=== PATIENT | male | born 1985 | race African-American/Black ===

== ENCOUNTER 2020-05-05 17:13 | Inpatient (IN) | payer MEDICAID ==
[~2020-05-05] VITALS: Ht 185.4 cm; Wt 109.3 kg
[2020-05-05 17:30] VITALS: BP 127/70
[2020-05-05] MEDS ORDERED: WARF4TAB68 PO (18:19)
[2020-05-05] MEDS ORDERED: OLAN15TA3 PO (18:21)
[2020-05-05] MEDS ORDERED: SILV20CR14 TP (18:21)
[2020-05-05 19:00] VITALS: BP 117/73
--- NOTE | 2020-05-05 19:37 | RAD ---
EXAM: 1. CHEST ONE VIEW. 2. ABDOMEN ONE VIEW. HISTORY: Pulmonary embolism, inferior vena cava filter placement. COMPARISON: 04/04/2018. FINDINGS: Enlargement of the left hilum corresponds with bulky calcified lymph nodes on prior CT. A vertically oriented relatively linear opacity in the right base may be scarring or a focal infiltrate and was not clearly seen previously. There is no pneumothorax or pleural effusion. The heart is not enlarged. An inferior vena cava filter is relatively inferiorly positioned, in the region of the confluence of the iliac veins. There are no distended small bowel loops. There is gas distally. IMPRESSION: 1. A linear opacity in the right base may represent scarring or a focal infiltrate. Follow-up could be performed if there is persistent concern. 2. Chronic left hilar enlargement corresponds with calcified lymph nodes consistent with old granulomatous disease. 3. The inferior vena cava filter is inferiorly placed in the region of the confluence of the iliac veins. Electronically signed by: Traci Ovalles MD (05/05/2020 7:33 PM) [facility]
[2020-05-05 19:42] LABS: BASO % 1 % (0-3); EOS # 0.1 x10^3/uL (0.0-0.7); EOS % 2 % (0-3); HEMATOCRIT 36.1 % (39.0-53.0); HEMOGLOBIN 11.9 g/dL (13.0-17.5); LYMPH # 1.6 x10^3/uL (1.0-4.8); LYMPH % 32 % (24-48); MEAN CORPUSCULAR HEMOGLOBIN 28 pg (25-35); MEAN CORPUSCULAR HGB CONC 33 g/dL (31-37); MEAN CORPUSCULAR VOLUME 85 fL (79-100); MONO # 0.4 x10^3/uL (0.0-1.1); MONO % 8 % (0-9); NEUT % 58 % (31-73); PLATELET COUNT 272 x10^3/uL (140-400); RED BLOOD COUNT 4.24 x10^6/uL (4.30-5.70); RED CELL DISTRIBUTION WIDTH 15.2 % (11.5-14.5); WHITE BLOOD COUNT 5.1 x10^3/uL (4.0-11.0)
[2020-05-05 20:09] LABS: PROTHROMBIN TIME PATIENT 23.9 SEC (11.7-14.0)
[2020-05-05 20:17] LABS: ALBUMIN 3.9 g/dL (3.4-5.0); CALCIUM 8.7 mg/dL (8.5-10.1); CREATININE 1.2 mg/dL (0.7-1.3); GFR 84.4; POTASSIUM 3.6 mmol/L (3.5-5.1); TOTAL BILIRUBIN 0.5 mg/dL (0.2-1.0); TOTAL PROTEIN 7.7 g/dL (6.4-8.2)
[2020-05-05] MEDS: WARFARIN 4 MG TABLET. PO SCH (21:15)
[2020-05-05] MEDS: OLANZapine 5 MG TABLET PO SCH (21:15)
[2020-05-05] MEDS: silver sulfADIAZINE 1% CREAM 25GM TUBE. TP SCH (21:15)
--- NOTE | 2020-05-05 21:51 | EKG ---
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
[2020-05-05] MEDS ORDERED: ceFAZolin SODIUM IV Push 1 GM VIAL. IVP SCH (22:00)
--- NOTE | 2020-05-05 22:04 | PDOC ---
Provider Note Provider Note Pt seen.H&P dictated.#[id number]. Justicifation of Admission Dx: Justifications for Admission: Justification of Admission Dx: Yes Cellulitis: Cellulitis Comments: ch recurrent DVT lower extremities KITA BURGER MD May 05, 2020 22:04
--- NOTE | 2020-05-05 22:19 | RAD ---
Bilateral lower extremity venous duplex Doppler ultrasound HISTORY: History of bilateral leg DVT, history of IVC filter, and chest, abdomen, pelvis and leg varicosities. FINDINGS: No priors available for comparison. There is thin linear intraluminal web at the right common femoral vein typical of fibrin strand from chronic DVT. No echogenic nonocclusive or occlusive or acute DVT of the right common femoral vein, profunda femoral vein, superficial femoral vein or popliteal vein with patent blood flow and compressibility. Patent color Doppler blood flow the posterior tibial and peroneal veins in the calf. Right calf edema. There is linear intraluminal web at the left common femoral vein extending down the superficial femoral vein to the popliteal vein typical of fibrin strand from chronic DVT. No echogenic nonocclusive or occlusive or acute DVT of the left common femoral vein, profunda femoral vein, superficial femoral vein or popliteal vein with patent blood flow and compressibility. Patent color blood flow of the posterior tibial veins. The peroneal veins could not be visualized. IMPRESSION: Chronic DVT of both legs with intraluminal nonocclusive fibrin strands involving the femoral and popliteal veins as described above. No acute or occlusive DVT evident. Electronically signed by: Enmanuel Tomlin MD (05/05/2020 10:16 PM) [facility]
--- NOTE | 2020-05-05 22:47 | HP ---
ADMIT DATE: 05/05/2020 MEDICAL HISTORY AND PHYSICAL REASON FOR ADMISSION TO THE HOSPITAL: Recurrent DVT; right leg pain; ulcerations in the right leg, 4 at least, different sizes, with skin breakdown; and possible leg cellulitis and recurrence of DVT, the patient is on Coumadin. HISTORY OF PRESENT ILLNESS: The patient is a 34-year-old male. The patient has a history of DVT, pulmonary embolism diagnosed in 2016. He has IVC filter. He has been on Coumadin on and off for DVTs, and the patient was off for 4 months, he started back taking Coumadin again in the last 2 months. The patient has developed sores on the right leg and the right leg has been more swollen with calf stiffness and pain. The patient was admitted to the hospital for possible recurrence of DVT, leg ulcerations, on IV antibiotics. The patient has developed some collaterals in the chest wall, varicose veins in the chest wall, was worried about that. The patient also has history of psychiatric problem, schizophrenia, on Zyprexa, [facility]. PAST MEDICAL HISTORY: As mentioned, he has a history of DVT, pulmonary embolism, IVC filter. ALLERGIES: No known allergies. MEDICATIONS AT HOME: The patient is on Coumadin 8 mg daily, he is on Zyprexa 15 mg daily, Silvadene to the ulcers. PERSONAL HISTORY: No smoking, quit 10 years ago. Denies alcohol or street drugs. FAMILY HISTORY: No blood clots. REVIEW OF SYMPTOMS: CARDIAC: No chest pain. GASTROINTESTINAL: No nausea or vomiting. EXTREMITIES: Complains of pain and swelling in the right leg and ulcers in the leg. PHYSICAL EXAMINATION: VITAL SIGNS: At the time of admission show temperature 98, pulse 82, respirations 18, blood pressure 127/70 and 96 on room air. HEENT: Head is atraumatic. Pupils are equal. Oral cavity, no congestion. NECK: Supple. Thyroid not enlarged. JVD not elevated. CHEST: The patient has multiple prominent varicose veins in the chest, front and to the sides, for some collaterals. RECTAL AND GENITALIA: Deferred. EXTREMITIES: The patient has bilateral swelling in both extremities, more so on the right leg when compared to the left leg. There are 3 ulcerations, different sizes and depth. You can see some fibrin at the base of the ulcers anywhere from 2 cm to 4 cm, around stage 3 ulcerations. Pulses are hard to feel secondary to edema. FINAL IMPRESSION: 1. Ulcers with possible cellulitis, right lower leg. 2. Chronic recurrent deep venous thrombosis. 3. History of inferior vena cava filter. 4. The patient has prominent varicose veins, possible collaterals, in the chest and abdominal wall. 5. History of schizophrenia stable on medications. PLAN: At this time, admit to the hospital, IV antibiotics, Ancef after cultures. The patient may need compression wraps, venous Doppler to rule out DVT, check INR, and also we will have Vascular to see if we can do further investigation for the collaterals, and Wound Care consult. KITA BURGER MD DR: NALDO/luz JOB#: [id number] / [id number] TIAN
[2020-05-05 23:00] VITALS: BP 100/52
[2020-05-06 03:00] VITALS: BP 110/66
[2020-05-06 07:06] VITALS: BP 121/63
[2020-05-06] MEDS: silver sulfADIAZINE 1% CREAM 25GM TUBE. TP SCH ×2 (07:47→21:00)
--- NOTE | 2020-05-06 08:11 | NUR ---
SW following. Discussed with RN, pt from home, room air, regular diet. RN advised no SW needs at this time. SW will continue to follow.
--- NOTE | 2020-05-06 09:17 | PDOC ---
Provider Note Provider Note Vascular Patient seen and examined with Dr. Urban Consult dictated Right lower extremity extensive large anterior leg ulcers deep to subcutaneous tissue Palpable distal pulses IMP: Chronic DVT, right leg venous stasis ulcers Recommend: CT angiogram of his Vena cava and pelvic venous system Wound Care Consult and continued local wound care ID consult Abx per ID Surgical debridement, plan for tomorrow afternoon, patient is agreeable State surgical COVID test Ok to continue anticoagulation INR 2.[address] scan and discussed with Dr. Carvalho, recommend venogram with recanalization of IVC and iliac vein. Recommend patient transfer to for procedure. Will plan leg debridement tomorrow and make plans for venogram in the near future. Justicifation of Admission Dx: Justifications for Admission: Justification of Admission Dx: Yes Cellulitis: Cellulitis HARRIET ALBA CHARRER May 06, 2020 09:17
--- NOTE | 2020-05-06 09:29 | CONS ---
DATE OF CONSULTATION: 05/06/2020 CHIEF COMPLAINT: Right leg wounds. HISTORY OF PRESENT ILLNESS: The patient is a 34-year-old male with a history of bilateral lower extremity deep venous thrombosis and pulmonary embolus, which began back in 2016. He has been treated since that time with chronic anticoagulation using Coumadin and has an IVC filter in place. He has chronic symptoms of bilateral lower extremity swelling. He has developed ulcers on his right lower leg on the anterior portion of the leg over the past several months. He has been seen at [facility] with dressing care with no improvement of the wounds. It sounds like he was using a compression sock or Tubigrip through the wound care. He has been admitted to the hospital because of worsening of the wounds and cellulitis and is being treated with IV antibiotics. He reports no tissue breakdown or ulcers in the past in his left leg. REVIEW OF SYSTEMS: A 10-point review of systems was performed, which is otherwise negative besides what is mentioned in the history of present illness. PAST MEDICAL HISTORY: Includes: 1. Bilateral lower extremity deep venous thrombosis. 2. Pulmonary embolus. 3. IVC filter. 4. Schizophrenia. PAST SURGICAL HISTORY: IVC filter. ALLERGIES: No known drug allergies. MEDICATIONS: Please see his full MAR. He is on chronic Coumadin. FAMILY HISTORY: No significant history pertaining to this current problem. PHYSICAL EXAMINATION: GENERAL: The patient is awake and alert, sitting up comfortably in bed. VITAL SIGNS: He is afebrile. His vital signs are stable. NECK: Supple. ABDOMEN: Soft, nondistended, and nontender. EXTREMITIES: His bilateral upper extremities are warm without edema and palpable radial pulses. His bilateral lower extremities have moderate swelling of the calf and ankles and mild swelling of the feet, and in his feet he has palpable pedal pulses. His feet are pink and warm with no tissue breakdown in the feet or toes. His right lower extremity has large ulcers throughout the anterior surface of the lower leg deep to the subcutaneous tissue level, there is copious amounts of necrotic tissue throughout the wounds and surrounding erythema. There is mild drainage from the wounds. No fluctuance or underlying abscess cavities felt. These are very consistent with venous stasis ulcers. There is no tissue breakdown in his left lower extremity. NEUROLOGIC: He is awake and alert, oriented x 3, moving all 4 extremities with normal strength, no gross neurologic deficits. IMAGING STUDIES: A duplex scan of his bilateral lower extremities shows chronic deep venous thrombosis within the femoral and popliteal veins. LABORATORY STUDIES: INR is 2.2. IMPRESSION AND RECOMMENDATIONS: The patient is a 34-year-old male with a long history of bilateral lower extremity deep venous thrombosis and pulmonary embolus, which occurred in 2016. He has been treated with chronic anticoagulation and an IVC filter in place. He has symptoms of chronic bilateral lower extremity swelling. He has multiple large venous stasis ulcers in his right lower extremity along the anterior surface, which have necrotic tissue and surrounding cellulitis. I recommend continuing his full anticoagulation. I recommend a CT venogram of the abdomen and pelvis to evaluate his central veins for patency and IVC filter with his significant bilateral lower extremity swelling. He will need surgical debridement of his right lower leg wounds, which will be scheduled for tomorrow. We will consult our wound care physician for evaluation and he will need long-term wound care with aggressive compression therapy to heal these wounds. He will also be on IV antibiotics and Infectious Disease consulted. SERENA SLADE MD DR: ALEXIS/luz JOB#: [id number] / [id number]
[2020-05-06] MEDS ORDERED: IOHEXOL 300 MG/ML 100ML VIAL. IV ONE (10:00)
[2020-05-06] MEDS ORDERED: CONTRAST GIVEN. MC PRN (10:00)
[2020-05-06 10:47] VITALS: BP 104/62
--- NOTE | 2020-05-06 11:06 | NUR ---
Pharmacy Warfarin Dosing Note S:Pharmacy consulted to assist with anticoagulation therapy started with target INR: 2 -3 O:COSME STANLEY is a 34 year old M with Recurrent VTE LABS: Last INR: 2.2 Last HGB: 11.9 Last HCT: 36.1 Last PLT: 272 Last dose of 8MG given on 05/05/20 at 2115 Previous Regimen: 8 mg/day Vitamin K given: Drug Interaction Changes: Ongoing Drug Interactions: A:INR of 2.2 is within desired range. Target range for this patient is: 2 -3 P: Warfarin dose: 8 mg DAILY Bridge Therapy: None Next INR due TOMORROW Pharmacy anticoagulation service will continue to follow. HEATHER KEEN [facility], 05/06/20 [id number]
--- NOTE | 2020-05-06 11:49 | RAD ---
Examination: CT ABD PELV W/ IV CONTRST ONLY History: Reason: evaluate venous system, Chronic Must[place]ha lower ext DVT, leg ulcers, IVC filter / Spl. Instructions: IV OMNI 300 100 MLS VENOUS DELAY PER DR. TOLBERT / History: Comparison/Correlation: 04/01/2018 CT abdomen and pelvis without and with contrast Findings: Axial images of the abdomen and pelvis were obtained following IV contrast. Imaging was performed in the late nephrographic and early excretory phase as in order to more optimally opacify the venous structures of the abdomen and pelvis. Sagittal and coronal reformatted images were provided. Very small pleural effusions are present. Minimal bibasilar atelectasis at the costophrenic angles noted. Liver, spleen, pancreas, adrenal glands, and kidneys are unremarkable although evaluation is limited as the images were acquired for optimal assessment of venous structures rather than the abdominal organs. Numerous venous collaterals involve the visualized subcutaneous lower thorax to the proximal thigh levels. Many are of large diameter. There is an inferior vena cava filter present at the L4 level within the inferior vena cava. There is lack of opacification of the filter on the images provided. The right common iliac vein and right external iliac vein are diminutive in size especially compared to the previous CT exam. The left common iliac vein is also diminutive in size compared to previous exam. There is mild decrease in the left external iliac vein diameter compared to the prior exam. Collaterals are seen involving the retroperitoneum about the abdominal aorta and inferior vena cava as well as about the iliac vessels. Collaterals are also seen at other sites within the abdomen including subjacent to the upper abdominal wall midline extending to the umbilicus. Umbilical hernia containing omental fat is normal in size.. Moderate L4-5 disc space narrowing is present. Urinary bladder is moderately distended. Impression: The inferior vena cava filter does not opacify adequately with contrast compatible with large thrombus involvement. This finding is new since the prior CT exam. Numerous large venous collaterals are seen involving the subcutaneous fat throughout the anatomic levels imaged for this exam. Collaterals are notable as well within the abdomen and pelvis. The common and external iliac veins bilaterally are smaller in size compared to prior exam especially on the right. Correlate for underlying chronic or previous history of thrombus. Opacification of these vessels is adequate on images provided. Small pleural effusions with minimal adjacent atelectasis. On 05/06/2001 11:45 AM, results reported to the patient's nurse Melissa. RS Compliance Statement: One or more of the following individualized dose reduction techniques were utilized for this examination: 1. Automated exposure control 2. Adjustment of the mA and/or kV according to patient size 3. Use of iterative reconstruction technique Electronically signed by: Tony De Jesus MD (05/06/2020 11:46 AM) [id number]
--- NOTE | 2020-05-06 12:33 | CONS ---
DATE OF CONSULTATION: 05/06/2020 REFERRING PHYSICIAN: Gregory Loving MD REASON FOR CONSULTATION: Chronic right leg wounds with superimposed cellulitis. HISTORY OF PRESENT ILLNESS: A 34-year-old male with history of bilateral lower extremity DVT and PE in 2016, status post IVC filter, on anticoagulation, presented with right leg worsening ulcer and swelling over the past couple of months. The patient had been following with [facility] with dressing with no improvement. The patient has been admitted to the hospital because of worsening wound, swelling and pain. The patient had been on cefdinir without much help. Also had been on Bactrim in the past. He denies any fevers, chills, nausea, vomiting, diarrhea, abdominal pain. He also has varicose veins, affecting both lower extremity, swelling in both the lower extremities, has been chronic. The patient was started on Ancef. Vascular has been consulted. ID consult has been requested for antibiotic management. REVIEW OF SYSTEMS: Negative except for above in the HPI. PAST MEDICAL HISTORY: 1. Bilateral lower extremity DVT. 2. Pulmonary embolism. 3. Status post IVC filter. 4. Schizophrenia. 5. Varicose veins. PAST SURGICAL HISTORY: IVC filter. ALLERGIES: No known drug allergies. SOCIAL HISTORY: No smoking, no alcohol, no illicit drugs. FAMILY HISTORY: Mother is adopted. No known history of coagulopathy. CURRENT MEDICATION: Ancef, hydromorphone, morphine, fentanyl, Zofran, olanzapine, sulfadiazine, warfarin. PHYSICAL EXAMINATION: VITAL SIGNS: Temperature 97.7, pulse 63, respiratory rate 17, blood pressure 104/62, oxygen saturation 99% on room air. GENERAL: Alert, oriented x 3, male, lying comfortably in bed, in no acute distress, pleasant, cooperative. HEENT: Normocephalic, atraumatic, anicteric. NECK: Supple. No JVD. LUNGS: Clear bilaterally. No wheezing. HEART: S1, S2. No gallops or murmurs. ABDOMEN: Soft, nontender, nondistended. No rebound, no guarding. EXTREMITIES: Bilateral lower extremity swelling with numerous ulcers over the anterior medial aspect of the right lower extremity with necrotic tissue, surrounding redness, warmth. Mild drainage from wound. No underlying fluctuance. Callus is present over both the toes on the plantar aspect. No skin breakdown noted. NEUROLOGIC: Alert and oriented x 3, grossly nonfocal. PSYCHIATRIC: Cooperative. Appropriate mood and affect. DERMATOLOGIC: No generalized rash except for above. LABORATORY DATA: WBC 5.1, hemoglobin 11.9, hematocrit 36.1, platelets 272. Sodium 140, potassium 3.6, chloride 102, bicarbonate 28, BUN 14, creatinine 1.2, glucose 96, calcium 8.7, total bilirubin 0.5, AST 37, ALT 22, alkaline phosphatase 88, total protein 7.7, albumin 3.9. IMAGING: Lower extremity ultrasound shows chronic DVT of both legs with intraluminal nonocclusive fibrin strands involving the femoral and popliteal veins. No acute or occlusive DVT present. Chest x-ray shows linear opacity in the lung base, represent scarring of the focal infiltrate. Followup could be performed for chronic left hilar enlargement correspond with calcified lymph nodes consistent with old granulomatous disease, inferior vena cava filter is placed in the region of confluence of the iliac veins. KUB shows nondistended bowels, gas distally, IVC is relatively inferiorly positioned in the region of confluence of the iliac vein. Abdominal and pelvic CT pending. IMPRESSION: 1. Chronic right lower extremity ulcers with mild superimposed cellulitis, 2. Chronic recurrent deep venous thrombosis. 3. Multiple large venous stasis ulcers, right lower extremity along the anterior medial aspect with necrosis. 4. History of pulmonary embolism. Status post IVC 5. History of schizophrenia. RECOMMENDATIONS: 1. Continue empiric Ancef. 2. Vascular plans noted. 3. Followup CT abdomen and pelvis. 4. Continue local wound care. 5. Continue supportive care. 6. Follow up labs and cultures. Thank you for consulting Infectious Disease to participate in this patient's care. If you have any questions, do not hesitate to contact me. GUSTAVO BECKER MD DR: KAYCEE/luz JOB#: [id number] / [id number] TIAN
[2020-05-06] MEDS: MULTIVITAMIN with MINERAL TABLET. PO SCH (13:29)
[2020-05-06 14:23] VITALS: BP 117/72
--- NOTE | 2020-05-06 15:05 | PDOC ---
PROGRESS NOTES Subjective Subjective no new problems Objective Objective Vital Signs Date Time Temp Pulse Resp B/P (MAP) Pulse Ox O2 Delivery O2 Flow Rate FiO2 05/06/20 14:23 97.5 65 16 117/72 (87) 100 Room Air 97.5 Intake and Output 05/06/20 07:00 # Voids 3 Physical Exam Abdomen: Normal bowel sounds, Soft Heart: Regular rate, Normal S1, Normal S2 General: Alert HEENT: Atraumatic Lungs: Clear to auscultation MUSCULOSKELETAL: Osteoarthritic changes both hands Neck: Supple Neuro: Normal speech Psych/Mental Status: Mood NL Skin: Other (multiple leg ullcers left leg) Assessment Assessment FINAL IMPRESSION: 1. Ulcers with possible cellulitis, right lower leg. 2. Chronic recurrent deep venous thrombosis. 3. History of inferior vena cava filter. 4. The patient has prominent varicose veins, possible collaterals, in the chest and abdominal wall 5. History of schizophrenia stable on medications . PLAN: venous doppler both legs inr 2.3 good on coumadin. Appreciate vascular consult. CTA of abdomen pending. other labs ok. At this time, admit to the hospital, IV antibiotics, Ancef after cultures. The patient may need compression wraps, venous Doppler to rule out DVT, check INR, and also we will have Vascular to see if we can do further investigation for the collaterals, and Wound Care consult. Comment Review of Relevant I have reviewed the following items jessica (where applicable) has been applied. Labs Laboratory Tests Test 05/05/20 19:30 05/05/20 19:35 Sodium Level 140 mmol/L (136-145) Potassium Level 3.6 mmol/L (3.5-5.1) Chloride Level 102 mmol/L (98-107) Carbon Dioxide Level 28 mmol/L (21-32) Anion Gap 10 (6-14) Blood Urea Nitrogen 14 mg/dL (8-26) Creatinine 1.2 mg/dL (0.7-1.3) Estimated GFR (Cockcroft-Gault) 84.4 BUN/Creatinine Ratio 12 (6-20) Glucose Level 96 mg/dL (70-99) Calcium Level 8.7 mg/dL (8.5-10.1) Total Bilirubin 0.5 mg/dL (0.2-1.0) Aspartate Amino Transf (AST/SGOT) 37 U/L (15-37) Alanine Aminotransferase (ALT/SGPT) 22 U/L (16-63) Alkaline Phosphatase 88 U/L (46-116) Total Protein 7.7 g/dL (6.4-8.2) Albumin 3.9 g/dL (3.4-5.0) Albumin/Globulin Ratio 1.0 (1.0-1.7) White Blood Count 5.1 x10^3/uL (4.0-11.0) Red Blood Count 4.24 x10^6/uL (4.30-5.70) Hemoglobin 11.9 g/dL (13.0-17.5) Hematocrit 36.1 % (39.0-53.0) Mean Corpuscular Volume 85 fL (79-100) Mean Corpuscular Hemoglobin 28 pg (25-35) Mean Corpuscular Hemoglobin Concent 33 g/dL (31-37) Red Cell Distribution Width 15.2 % (11.5-14.5) Platelet Count 272 x10^3/uL (140-400) Neutrophils (%) (Auto) 58 % (31-73) Lymphocytes (%) (Auto) 32 % (24-48) Monocytes (%) (Auto) 8 % (0-9) Eosinophils (%) (Auto) 2 % (0-3) Basophils (%) (Auto) 1 % (0-3) Neutrophils # (Auto) 3.0 x10^3/uL (1.8-7.7) Lymphocytes # (Auto) 1.6 x10^3/uL (1.0-4.8) Monocytes # (Auto) 0.4 x10^3/uL (0.0-1.1) Eosinophils # (Auto) 0.1 x10^3/uL (0.0-0.7) Basophils # (Auto) 0.0 x10^3/uL (0.0-0.2) Prothrombin Time 23.9 SEC (11.7-14.0) Prothromb Time International Ratio 2.2 (0.8-1.1) Medications Current Medications Cefazolin Sodium (Ancef) 2 gm Q8HRS IVP ; Start 05/05/20 at 22:00; Status UNV Cefazolin Sodium/ Dextrose 50 ml @ 100 mls/hr Q8HRS IV Last administered on 05/06/20at 13:32; Start 05/05/20 at 20:00 Fentanyl Citrate (Fentanyl 2ml Vial) 25 mcg PRN Q5MIN PRN IV MILD PAIN 1-3; Start 05/07/20 at 07:00; Stop 05/08/20 at 06:59 Fentanyl Citrate (Fentanyl 2ml Vial) 50 mcg PRN Q5MIN PRN IV MODERATE TO SEVERE PAIN; Start 05/07/20 at 07:00; Stop 05/08/20 at 06:59 Hydromorphone HCl (Dilaudid) 0.5 mg PRN Q10MIN PRN IV SEV PAIN, Second choice; Start 05/07/20 at 07:00; Stop 05/08/20 at 06:59 Info (CONTRAST GIVEN -- Rx MONITORING) 1 each PRN DAILY PRN MC SEE COMMENTS; Start 05/06/20 at 10:00; Stop 05/08/20 at 09:59 Iohexol (Omnipaque 300 Mg/ml) 100 ml 1X ONCE IV Last administered on 05/06/20at 10:05; Start 05/06/20 at 10:00; Stop 05/06/20 at 10:01; Status DC Lactobacillus Rhamnosus (Culturelle) 1 cap BID PO ; Start 05/06/20 at 21:00 Lidocaine HCl (Xylocaine-Mpf 1% 2ml Vial) 2 ml PRN 1X PRN ID PRIOR TO IV START; Start 05/07/20 at 07:00; Stop 05/08/20 at 06:59 Morphine Sulfate (Morphine Sulfate) 1 mg PRN Q10MIN PRN IV SEVERE PAIN 7-10; Start 05/07/20 at 07:00; Stop 05/08/20 at 06:59 Multivitamins (Thera M Plus) 1 tab DAILY PO Last administered on 05/06/20at 13:29; Start 05/06/20 at 13:30 Olanzapine (ZyPREXA) 15 mg QHS PO Last administered on 05/05/20at 21:15; Start 05/05/20 at 21:00 Ondansetron HCl (Zofran) 4 mg PRN Q6HRS PRN IV NAUSEA/VOMITING; Start 05/07/20 at 07:00; Stop 05/08/20 at 06:59 Prochlorperazine Edisylate (Compazine) 5 mg PACU PRN PRN IV NAUSEA, MRX1; Start 05/07/20 at 07:00; Stop 05/08/20 at 06:59 Ringer's Solution 1,000 ml @ 30 mls/hr Q24H IV ; Start 05/07/20 at 07:00; Stop 05/07/20 at 18:59 Silver Sulfadiazine (Silvadene) 1 sean BID TP Last administered on 05/06/20at 07:47; Start 05/05/20 at 21:00 Warfarin Sodium (Coumadin Per Pharmacy) 1 each PRN DAILY PRN MC SEE COMMENTS Last administered on 05/06/20at 11:04; Start 05/05/20 at 18:30 Warfarin Sodium (Coumadin) 8 mg DAILY16 PO Last administered on 05/05/20at 21:15; Start 05/05/20 at 21:00 Vitals/I & O Vital Sign - Last 24 Hours 05/05/20 05/05/20 05/05/20 05/05/20 17:30 19:00 19:30 23:00 Temp 98.2 97.9 97.4 98.2 97.9 97.4 Pulse 82 80 75 Resp 18 18 18 B/P (MAP) 127/70 (89) 117/73 (88) 100/52 (68) Pulse Ox 96 94 95 O2 Delivery Room Air Room Air Room Air Room Air 05/06/20 05/06/20 05/06/20 05/06/20 03:00 07:06 07:58 10:47 Temp 98.2 98.0 97.7 98.2 98.0 97.7 Pulse 75 58 63 Resp 18 16 17 B/P (MAP) 110/66 (81) 121/63 (82) 104/62 (76) Pulse Ox 96 94 99 O2 Delivery Room Air Room Air Room Air Room Air 05/06/20 14:23 Temp 97.5 97.5 Pulse 65 Resp 16 B/P (MAP) 117/72 (87) Pulse Ox 100 O2 Delivery Room Air Justicifation of Admission Dx: Justifications for Admission: Justification of Admission Dx: Yes Cellulitis: Cellulitis KITA BURGER MD May 06, 2020 15:05
--- NOTE | 2020-05-06 15:09 | NUR ---
Wound/Ostomy Care Wound Type/Assessment: consult for RLE VLU, hx of DVT, slough noted on wound bed, dark discolored leg . Per Dr. Urban's note, pt to go to surgery for debridement tomorrow. Treatment Recommendations/Plan: RLE wound cleansed with saline wash and measured.Therahoney,contact layer, abd and kerlix applied. Wound care will follow up on 05/08 after surgery. Education provided: patient on leg elevation Offloading surface/device: n/a Recommended Referrals/Tests: vascular following up Discharge Recommendations for dressings: will re-eval after surgical intervention and consult with [facility] surgery.
[2020-05-06] MEDS: WARFARIN 4 MG TABLET. PO SCH (15:39)
[2020-05-06 19:00] VITALS: BP 104/58
[2020-05-06] MEDS: OLANZapine 5 MG TABLET PO SCH (21:12)
[2020-05-06] MEDS: LACTOBACILLUS RHAMNOSUS GG 1 CAPSULE. PO SCH (21:12)
[2020-05-06 23:00] VITALS: BP 106/64
[2020-05-07 05:13] LABS: PROTHROMBIN TIME PATIENT 26.7 SEC (11.7-14.0)
[2020-05-07] MEDS ORDERED: HYDROmorphone 2 MG/ML VIAL IV PRN (07:00)
[2020-05-07] MEDS ORDERED: PROCHLORPERAZINE 10 MG/2 ML VIAL. IV PRN (07:00)
[2020-05-07] MEDS ORDERED: IV RINGERS,LACTATED 1000ML 1,000 ML IV SCH (07:00)
[2020-05-07] MEDS ORDERED: LIDOCAINE 1% PF 2 ML VIAL. ID PRN (07:00)
[2020-05-07] MEDS ORDERED: ONDANSETRON PF 4 MG/2 ML VIAL. IV PRN (07:00)
[2020-05-07] MEDS ORDERED: fentaNYL PF VIAL 100 MCG/2 ML VIAL IV PRN (07:00)
[2020-05-07] MEDS: silver sulfADIAZINE 1% CREAM 25GM TUBE. TP SCH ×2 (07:03→20:47)
[2020-05-07] MEDS: LACTOBACILLUS RHAMNOSUS GG 1 CAPSULE. PO SCH ×2 (07:03→20:46)
[2020-05-07] MEDS: MULTIVITAMIN with MINERAL TABLET. PO SCH (07:03)
[2020-05-07 07:05] VITALS: BP 110/64
--- NOTE | 2020-05-07 08:14 | PDOC ---
Infectious Disease Note Subjective: Subjective Patient without complaints Awaiting surgery later today Vital Signs: Vital Signs Vital Signs Date Time Temp Pulse Resp B/P (MAP) Pulse Ox O2 Delivery O2 Flow Rate FiO2 05/07/20 07:05 97.8 64 16 110/64 (79) 98 Room Air 97.8 Physical Exam: PHYSICAL EXAM GENERAL: Alert, oriented x 3, male, lying comfortably in bed, in no acute distress, pleasant, cooperative. HEENT: Normocephalic, atraumatic, anicteric. NECK: Supple. No JVD. LUNGS: Clear bilaterally. No wheezing. HEART: S1, S2. No gallops or murmurs. ABDOMEN: Soft, nontender, nondistended. No rebound, no guarding. EXTREMITIES: Bilateral lower extremity swelling with numerous ulcers over the anterior medial aspect of the right lower extremity with necrotic tissue, surrounding redness, warmth. Mild drainage from wound. No underlying fluctuance. Callus is present over both the toes on the plantar aspect. No skin breakdown noted. NEUROLOGIC: Alert and oriented x 3, grossly nonfocal. PSYCHIATRIC: Cooperative. Appropriate mood and affect. DERMATOLOGIC: No generalized rash except for above. Medications: Inpatient Meds: Current Medications Medications (Trade) Dose Ordered Sig/Heron Start Time Stop Time Status Last Admin Dose Admin Cefazolin Sodium (Ancef) 2 gm Q8HRS 05/05/20 22:00 UNV Cefazolin Sodium 1 gm/Sodium Chloride 500 ml @ 500 mls/hr 1X ONCE 05/07/20 06:00 05/07/20 06:59 DC Cefazolin Sodium/ Dextrose 50 ml @ 100 mls/hr Q8HRS 05/05/20 20:00 05/07/20 05:40 100 MLS/HR Fentanyl Citrate (Fentanyl 2ml Vial) 50 mcg PRN Q5MIN PRN 05/07/20 07:00 05/08/20 06:59 Hydromorphone HCl (Dilaudid) 0.5 mg PRN Q10MIN PRN 05/07/20 07:00 05/08/20 06:59 Info (CONTRAST GIVEN -- Rx MONITORING) 1 each PRN DAILY PRN 05/06/20 10:00 05/08/20 09:59 Iohexol (Omnipaque 300 Mg/ml) 100 ml 1X ONCE 05/06/20 10:00 05/06/20 10:01 DC 05/06/20 10:05 100 ML Lactobacillus Rhamnosus (Culturelle) 1 cap BID 05/06/20 21:00 05/06/20 21:12 1 CAP Lidocaine HCl (Xylocaine-Mpf 1% 2ml Vial) 2 ml PRN 1X PRN 05/07/20 07:00 05/08/20 06:59 Morphine Sulfate (Morphine Sulfate) 1 mg PRN Q10MIN PRN 05/07/20 07:00 05/08/20 06:59 Multivitamins (Thera M Plus) 1 tab DAILY 05/06/20 13:30 05/06/20 13:29 1 TAB Olanzapine (ZyPREXA) 15 mg QHS 05/05/20 21:00 05/06/20 21:12 15 MG Ondansetron HCl (Zofran) 4 mg PRN Q6HRS PRN 05/07/20 07:00 05/08/20 06:59 Prochlorperazine Edisylate (Compazine) 5 mg PACU PRN PRN 05/07/20 07:00 05/08/20 06:59 Ringer's Solution 1,000 ml @ 30 mls/hr Q24H 05/07/20 07:00 05/07/20 18:59 Silver Sulfadiazine (Silvadene) 1 sean BID 05/05/20 21:00 05/06/20 07:47 1 SEAN Warfarin Sodium (Coumadin Per Pharmacy) 1 each PRN DAILY PRN 05/05/20 18:30 05/06/20 11:04 1 EACH Warfarin Sodium (Coumadin) 8 mg DAILY16 05/05/20 21:00 05/06/20 15:39 8 MG Labs: Lab Laboratory Tests Test 05/06/20 09:40 05/07/20 04:03 Coronavirus (COVID-19)(PCR) Negative (NEGATIVE) Prothrombin Time 26.7 SEC (11.7-14.0) Prothromb Time International Ratio 2.5 (0.8-1.1) Micro CT abdomen impression: The inferior vena cava filter does not opacify adequately with contrast compatible with large thrombus involvement. This finding is new since the prior CT exam. Numerous large venous collaterals are seen involving the subcutaneous fat throughout the anatomic levels imaged for this exam. Collaterals are notable as well within the abdomen and pelvis. The common and external iliac veins bilaterally are smaller in size compared to prior exam especially on the right. Correlate for underlying chronic or previous history of thrombus. Opacification of these vessels is adequate on images provided. Small pleural effusions with minimal adjacent atelectasis. Objective: Assessment: 1. Chronic right lower extremity ulcers with mild superimposed cellulitis and necrotic wounds 2. Chronic recurrent deep venous thrombosis. 3. Multiple large venous stasis ulcers, right lower extremity along the anterior medial aspect 4. History of pulmonary embolism. Status post IVC 5. History of schizophrenia. Plan: Plan of Care 1. Continue empiric Ancef. 2. Awaiting surgery later today 3. Follow-up intraoperative cultures 4. Continue local wound care. 5. Continue supportive care. 6. Follow up labs GUSTAVO BECKER MD May 07, 2020 08:14
--- NOTE | 2020-05-07 08:56 | NUR ---
SW following. Discussed with RN, pt having an I&D today, IV ancef. RN questioned SW about a possible [facility] transfer, SW not aware of this, RN thinks possibly pt will be discharged after procedure to follow up with [facility] rather than a hospital transfer. SW will continue to follow.
--- NOTE | 2020-05-07 09:26 | PDOC ---
PROGRESS NOTES Subjective Subjective GOING FOR WOUND DEBRIDEMENT Objective Objective Vital Signs Date Time Temp Pulse Resp B/P (MAP) Pulse Ox O2 Delivery O2 Flow Rate FiO2 05/07/20 07:05 97.8 64 16 110/64 (79) 98 Room Air 97.8 Intake and Output 05/07/20 07:00 Intake Total 900 ml Balance 900 ml Intake Oral 900 ml # Voids 5 Physical Exam Abdomen: Normal bowel sounds, Soft Heart: Regular rate, Normal S1, Normal S2 General: Alert HEENT: Atraumatic Lungs: Clear to auscultation MUSCULOSKELETAL: Osteoarthritic changes both hands Neck: Supple Neuro: Normal speech Psych/Mental Status: Mood NL Skin: Other (multiple leg ullcers left leg) Assessment Assessment FINAL IMPRESSION: 1. Multiple Ulcers with possible cellulitis, right lower leg. 2. Chronic recurrent deep venous thrombosis. 3. History of inferior vena cava filter. 4. The patient has prominent varicose veins, possible collaterals, in the chest and abdominal wall 5. History of schizophrenia stable on medications . PLAN:CT venogram ,clots around IVC filter venous doppler both legs inr 2.5 good on coumadin. Appreciate vascular consult. covid -19 neg other labs ok. hematology consult for hypercoaguble state At this time, admit to the hospital, IV antibiotics, Ancef after cultures. The patient may need compression wraps, venous Doppler to rule out DVT, check INR, and also we will have Vascular to see if we can do further investigation for the collaterals, and Wound Care consult. Comment Review of Relevant I have reviewed the following items jessica (where applicable) has been applied. Labs Laboratory Tests Test 05/06/20 09:40 05/07/20 04:03 Coronavirus (COVID-19)(PCR) Negative (NEGATIVE) Prothrombin Time 26.7 SEC (11.7-14.0) Prothromb Time International Ratio 2.5 (0.8-1.1) Medications Current Medications Cefazolin Sodium 1 gm/Sodium Chloride 500 ml @ 500 mls/hr 1X ONCE IRR ; Start 05/07/20 at 06:00; Stop 05/07/20 at 06:59; Status DC Fentanyl Citrate (Fentanyl 2ml Vial) 25 mcg PRN Q5MIN PRN IV MILD PAIN 1-3; Start 05/07/20 at 07:00; Stop 05/08/20 at 06:59 Fentanyl Citrate (Fentanyl 2ml Vial) 50 mcg PRN Q5MIN PRN IV MODERATE TO SEVERE PAIN; Start 05/07/20 at 07:00; Stop 05/08/20 at 06:59 Hydromorphone HCl (Dilaudid) 0.5 mg PRN Q10MIN PRN IV SEV PAIN, Second choice; Start 05/07/20 at 07:00; Stop 05/08/20 at 06:59 Info (CONTRAST GIVEN -- Rx MONITORING) 1 each PRN DAILY PRN MC SEE COMMENTS; Start 05/06/20 at 10:00; Stop 05/08/20 at 09:59 Iohexol (Omnipaque 300 Mg/ml) 100 ml 1X ONCE IV Last administered on 05/06/20at 10:05; Start 05/06/20 at 10:00; Stop 05/06/20 at 10:01; Status DC Lactobacillus Rhamnosus (Culturelle) 1 cap BID PO Last administered on 05/06/20at 21:12; Start 05/06/20 at 21:00 Lidocaine HCl (Xylocaine-Mpf 1% 2ml Vial) 2 ml PRN 1X PRN ID PRIOR TO IV START; Start 05/07/20 at 07:00; Stop 05/08/20 at 06:59 Morphine Sulfate (Morphine Sulfate) 1 mg PRN Q10MIN PRN IV SEVERE PAIN 7-10; Start 05/07/20 at 07:00; Stop 05/08/20 at 06:59 Multivitamins (Thera M Plus) 1 tab DAILY PO Last administered on 05/06/20at 13:29; Start 05/06/20 at 13:30 Ondansetron HCl (Zofran) 4 mg PRN Q6HRS PRN IV NAUSEA/VOMITING; Start 05/07/20 at 07:00; Stop 05/08/20 at 06:59 Prochlorperazine Edisylate (Compazine) 5 mg PACU PRN PRN IV NAUSEA, MRX1; Start 05/07/20 at 07:00; Stop 05/08/20 at 06:59 Ringer's Solution 1,000 ml @ 30 mls/hr Q24H IV ; Start 05/07/20 at 07:00; Stop 05/07/20 at 18:59 Vitals/I & O Vital Sign - Last 24 Hours 05/06/20 05/06/20 05/06/20 05/06/20 10:47 14:23 19:00 20:00 Temp 97.7 97.5 97.3 97.7 97.5 97.3 Pulse 63 65 57 Resp 17 16 18 B/P (MAP) 104/62 (76) 117/72 (87) 104/58 (73) Pulse Ox 99 100 100 O2 Delivery Room Air Room Air Room Air Room Air 05/06/20 05/07/20 05/07/20 23:00 03:00 07:05 Temp 97.7 97.8 97.7 97.8 Pulse 76 64 Resp 18 18 16 B/P (MAP) 106/64 (78) 110/64 (79) Pulse Ox 99 98 O2 Delivery Room Air Room Air Intake and Output 05/06/20 05/06/20 05/07/20 15:00 23:00 07:00 Intake Total 400 ml 500 ml Balance 400 ml 500 ml Justicifation of Admission Dx: Justifications for Admission: Justification of Admission Dx: Yes Cellulitis: Cellulitis KITA BURGER MD May 07, 2020 09:25
[2020-05-07 10:50] VITALS: BP 117/73
--- NOTE | 2020-05-07 11:01 | NUR ---
Pharmacy Warfarin Dosing Note S:Pharmacy consulted to assist with anticoagulation therapy started with target INR: 2 -3 O:COSME STANLEY is a 34 year old M with Recurrent VTE LABS: Last INR: 2.5 Last HGB: 11.9 Last HCT: 36.1 Last PLT: 272 Last dose of 8MG given on 05/06/20 at 1539 Previous Regimen: 8 mg/day A:INR of 2.5 is within desired range. Target range for this patient is: 2 -3 P: Warfarin dose: 8 mg Today at 1600 Bridge Therapy: None Next INR due 05/08/20 Pharmacy anticoagulation service will continue to follow. CARSON SILVA RPH, 05/07/20 [id number]
[2020-05-07] MEDS ORDERED: SURGICEL FIBRILLAR 1X2 EACH. ONE (12:41)
[2020-05-07] MEDS ORDERED: LIDOCAINE 1% Multi-Dose 20 ML VIAL. ONE (12:41)
--- NOTE | 2020-05-07 12:48 | PDOC ---
Provider Note Provider Note Vascular Surgery CT shows occlusion of the IVC and filter which is likely chronic associated with his history of DVTs. He has chronic symptoms of abdominal wall and groin large varicose veins, bilateral lower extremity swelling and right leg venous stasis ulcers. Plan right leg debridement today. I discussed case with IR here at [facility] and they recommend venogram at which I agree with for this very specialized problem. I have arrange a venogram with possible thrombolysis and stenting of the IVC next week at with Dr. Rao. We will need to hold coumadin and start lovenox. This procedure is not urgent. He may be discharged this week and will come into next week for the procedure. Will need follow up with wound care for his ulcers. Justicifation of Admission Dx: Justifications for Admission: Justification of Admission Dx: Yes Cellulitis: Cellulitis SERENA SLADE MD May 07, 2020 12:48
[2020-05-07] MEDS ORDERED: fentaNYL PF VIAL 100 MCG/2 ML VIAL ONE (12:49)
[2020-05-07] MEDS ORDERED: LIDOCAINE 1% PF 5 ML VIAL. ONE (12:49)
[2020-05-07] MEDS ORDERED: PROPOFOL 10 MG/ML (20ML) VIAL. IV ONE (12:49)
[2020-05-07] MEDS ORDERED: MIDAZOLAM HCL/PF 2 MG/2 ML VIAL. ONE (12:50)
--- NOTE | 2020-05-07 13:33 | PDOC ---
BRIEF OPERATIVE NOTE Pre-Op Diagnosis Right lower extremity venous stasis ulcers with necrosis of skin and subcutaneous tissue, cellulitis surrounding tissue Post-Op Diagnosis same Procedure Performed Right lower leg Excisional debridement and subcutaneous tissue Surgeon Dr. [facility] Harriet Alba NP Anesthesia Type: General Blood Loss minimal Specimens Obtained cultures lower extremity wound Findings healthy viable tissue post debridement Complications none Operative Note see dictated note see dictated note for wound measurements Patient will need venogram with thrombectomy of IVC and possible stent placement at the [facility], will plan to admit patient there next week for procedure. The patient will need to have his Coumadin held and on Susanne enox, he can continue that up until the time of procedure per Dr. Urban. HARRIET ALBA HAT LINING BLOCKER May 07, 2020 13:33
--- NOTE | 2020-05-07 13:43 | OP ---
DATE OF SURGERY: 05/07/2020 SURGEON: Graciela Urban MD FOOD AND NUTRITION TEACHER: Lidia Recio, nurse practitioner. PREOPERATIVE DIAGNOSIS: Right lower extremity venous stasis ulcers with necrotic tissue throughout the wounds and surrounding cellulitis. PROCEDURE PERFORMED: Right lower extremity sharp excisional debridement of necrotic skin throughout the leg ulcers, there are 3 ulcers total, which were sharply debrided. Measurements of the first ulcer were 10 cm in length x 7 cm in width x superficial in depth, second ulcer 4 cm in length x 2.5 cm in width x superficial in depth and the last ulcer 2.5 cm in length x 3.5 cm in width x superficial in depth. ANESTHESIA USED: General anesthesia. INDICATIONS: The patient is a 34-year-old male with a long history of venous disease with multiple deep venous thrombosis in the past and a pulmonary embolus. He is on anticoagulation chronically and has an IVC filter in place. He has chronic symptoms of bilateral lower extremity swelling, abdominal wall varicose veins and has developed venous stasis ulcers on his right lower leg. The ulcers have necrotic tissue throughout the wound beds and surrounding cellulitis. There are very painful and debridement could not be performed at the bedside because of significant pain. I recommend sharp excisional debridement of the right lower leg necrotic wounds, which will be done under anesthesia and surgery. Informed consent was obtained including the risk of further breakdown of his wounds requiring further debridement in the future, need for long-term wound care and compression therapy to get the source to heal. DETAILS OF THE OPERATION: The patient was brought to the operating room and placed on table in supine position. He received general anesthesia monitored throughout the case by the anesthesiologist. His right leg from the knee to the ankle was prepped circumferentially by normal sterile fashion. We draped the patient. The necrotic wounds were on the anterior surface of his lower leg in the area of the jordan. We performed sharp excisional debridement with a curette throughout the wound beds, removing black necrotic layer of skin and debriding down to healthy pink tissue. Debridement was performed in 3 large open areas of the wounds, removing all necrotic skin throughout the wound beds. The underlying tissue was pink and healthy. The center of these wounds had a slightly deeper wound, which we sharply debrided back through the skin to just at the level of subcutaneous tissue. There was no further necrotic tissue after debridement was performed and the tissue within the wounds was nice and pink and healthy. We washed the lower leg. We placed Aquacel soaked with saline on all of the wounds in the lower leg and then wrapped with ABD pads, Kerlix wraps and an Dhaval bandage to the lower leg. He tolerated the surgery with no immediate complications. Lidia Recio was scrubbed throughout the entire length of the procedure for this debridement and dressing care. Cultures were sent during the procedure. GRACIELA URBAN MD DR: ALEXIS/luz JOB#: [id number] / [id number]
[2020-05-07] MEDS: MORPHINE SULFATE 2 MG/ML VIAL. IV PRN ×2 (13:44→14:04)
--- NOTE | 2020-05-07 13:54 | PDOC2 ---
CONSULT Date of Consult Date of Consult DATE: 05/07/20 TIME: 12:45 Reason for Consult Reason for Consult: Recurrent DVT, hypercoagulable state. Referring Physician Referring Physician: Dr. Gregory Loving. Identification/Chief Complaint Chief Complaint Right leg swelling, ulcers, cellulitis. Source Source: Chart review, Patient History of Present Illness Reason for Visit: 34 year-old with history of PE in 2016, s/p IVC filter on warfarin on and off. The patient was off warfarin from 12/2019-04/2020. Admitted 05/05/2020 with worsening bilateral leg swelling, multiple necrotic ulcers in the right leg. Physical exam was also positive for multiple collaterals in the anterior chest wall. 05/05/2020 LE ultrasound showed chronic non-occlusive DVT in bilateral LE, no acute DVT. 05/05/2020 abdomen/pelvis CT showed IVC filter with associated thrombosis and multiple collaterals. INR 2.2 as of 05/05/2020. The patient has been started on antibiotics. He was also taken to the OR today for debridement of multiple necrotic ulcers. Ye is being seen at the request of Dr. Gregory Loving. Ye is being seen via telecommunications platform today. He reports in early 03/2020 he first noticed sores in his right leg, which progressed with increased pain in mid-03/2020. He reports he discontinued Coumadin in ~ 12/2019 due to financial concerns and did not restart until 04/2020. He states he has looked into cost for both Xarelto and Eliquis, but they were both "too expensive". Past Medical History Past Medical History DVT, PE, schizophrenia. Cardiovascular: No pertinent hx Pulmonary: Pulmonary embolus GI: GERD Heme/Onc: Other Psych: Schizophrenia Infectious disease: No pertinent hx Renal/: Hematuria Endocrine: No pertinent hx Dermatology: Cellulitis, Other (Necrotic ulcers in the right leg. ) Past Surgical History Past Surgical History IVC filter placement. Past Surgical History: Other Family History Family History: Other Social History ALCOHOL: none Drugs: Marijuana Lives: Alone Current Medications Current Medications Current Medications Cefazolin Sodium (Ancef) 2 gm Q8HRS IVP ; Start 05/05/20 at 22:00; Status UNV Cefazolin Sodium/ Dextrose 50 ml @ 100 mls/hr Q8HRS IV Last administered on 05/07/20at 05:40; Start 05/05/20 at 20:00 Silver Sulfadiazine (Silvadene) 1 page BID TP Last administered on 05/06/20at 07:47; Start 05/05/20 at 21:00 Warfarin Sodium (Coumadin) 8 mg DAILY16 PO Last administered on 05/06/20at 15:39; Start 05/05/20 at 21:00 Olanzapine (ZyPREXA) 15 mg QHS PO Last administered on 05/06/20at 21:12; Start 05/05/20 at 21:00 Warfarin Sodium (Coumadin Per Pharmacy) 1 each PRN DAILY PRN MC SEE COMMENTS Last administered on 05/07/20at 11:01; Start 05/05/20 at 18:30 Ondansetron HCl (Zofran) 4 mg PRN Q6HRS PRN IV NAUSEA/VOMITING; Start 05/07/20 at 07:00; Stop 05/08/20 at 06:59 Fentanyl Citrate (Fentanyl 2ml Vial) 25 mcg PRN Q5MIN PRN IV MILD PAIN 1-3; Start 05/07/20 at 07:00; Stop 05/08/20 at 06:59 Fentanyl Citrate (Fentanyl 2ml Vial) 50 mcg PRN Q5MIN PRN IV MODERATE TO SEVERE PAIN; Start 05/07/20 at 07:00; Stop 05/08/20 at 06:59 Morphine Sulfate (Morphine Sulfate) 1 mg PRN Q10MIN PRN IV SEVERE PAIN 7-10; Start 05/07/20 at 07:00; Stop 05/08/20 at 06:59 Ringer's Solution 1,000 ml @ 30 mls/hr Q24H IV Last administered on 05/07/20at 12:30; Start 05/07/20 at 07:00; Stop 05/07/20 at 18:59 Lidocaine HCl (Xylocaine-Mpf 1% 2ml Vial) 2 ml PRN 1X PRN ID PRIOR TO IV START; Start 05/07/20 at 07:00; Stop 05/08/20 at 06:59 Hydromorphone HCl (Dilaudid) 0.5 mg PRN Q10MIN PRN IV SEV PAIN, Second choice; Start 05/07/20 at 07:00; Stop 05/08/20 at 06:59 Prochlorperazine Edisylate (Compazine) 5 mg PACU PRN PRN IV NAUSEA, MRX1; Start 05/07/20 at 07:00; Stop 05/08/20 at 06:59 Iohexol (Omnipaque 300 Mg/ml) 100 ml 1X ONCE IV Last administered on 05/06/20at 10:05; Start 05/06/20 at 10:00; Stop 05/06/20 at 10:01; Status DC Info (CONTRAST GIVEN -- Rx MONITORING) 1 each PRN DAILY PRN MC SEE COMMENTS; Start 05/06/20 at 10:00; Stop 05/08/20 at 09:59 Lactobacillus Rhamnosus (Culturelle) 1 cap BID PO Last administered on 05/06/20at 21:12; Start 05/06/20 at 21:00 Multivitamins (Thera M Plus) 1 tab DAILY PO Last administered on 05/06/20at 13:29; Start 05/06/20 at 13:30 Cefazolin Sodium 1 gm/Sodium Chloride 500 ml @ 500 mls/hr 1X ONCE IRR ; Start 05/07/20 at 06:00; Stop 05/07/20 at 06:59; Status DC Active Scripts Active Reported Zyprexa (Olanzapine) 15 Mg Tablet 1 Tab PO QHS Silvadene (Silver Sulfadiazine) 20 Gm Cream..g. 1 Page TP BID 15 Days apply to affected area(s) Coumadin (Warfarin Sodium) 4 Mg Tablet 8 Mg PO DAILY Allergies Allergies: Coded Allergies: No Known Drug Allergies (Unverified , 03/31/18) ROS Skin: Yes Skin Lesion Changes (Multiple necrotic venous stasis ulcers in the right. ) Physical Exam General: Alert, Oriented X3, No acute distress HEENT: Atraumatic Lungs: Clear to auscultation Heart: Regular rate Abdomen: Normal bowel sounds Extremities: No clubbing Skin: Other (Multiple necrotic chronic venous stasis ulcers in the right leg. ) Neuro: Normal gait Psych/Mental Status: Mental status NL Vitals VITALS Vital Signs Date Time Temp Pulse Resp B/P (MAP) Pulse Ox O2 Delivery O2 Flow Rate FiO2 05/07/20 12:24 98.6 57 15 119/69 99 Room Air 98.6 Labs Labs Laboratory Tests Test 05/05/20 19:30 05/05/20 19:35 05/06/20 09:40 05/07/20 04:03 Sodium Level 140 mmol/L (136-145) Potassium Level 3.6 mmol/L (3.5-5.1) Chloride Level 102 mmol/L (98-107) Carbon Dioxide Level 28 mmol/L (21-32) Anion Gap 10 (6-14) Blood Urea Nitrogen 14 mg/dL (8-26) Creatinine 1.2 mg/dL (0.7-1.3) Estimated GFR (Cockcroft-Gault) 84.4 BUN/Creatinine Ratio 12 (6-20) Glucose Level 96 mg/dL (70-99) Calcium Level 8.7 mg/dL (8.5-10.1) Total Bilirubin 0.5 mg/dL (0.2-1.0) Aspartate Amino Transf (AST/SGOT) 37 U/L (15-37) Alanine Aminotransferase (ALT/SGPT) 22 U/L (16-63) Alkaline Phosphatase 88 U/L (46-116) Total Protein 7.7 g/dL (6.4-8.2) Albumin 3.9 g/dL (3.4-5.0) Albumin/Globulin Ratio 1.0 (1.0-1.7) White Blood Count 5.1 x10^3/uL (4.0-11.0) Red Blood Count 4.24 x10^6/uL (4.30-5.70) Hemoglobin 11.9 g/dL (13.0-17.5) Hematocrit 36.1 % (39.0-53.0) Mean Corpuscular Volume 85 fL (79-100) Mean Corpuscular Hemoglobin 28 pg (25-35) Mean Corpuscular Hemoglobin Concent 33 g/dL (31-37) Red Cell Distribution Width 15.2 % (11.5-14.5) Platelet Count 272 x10^3/uL (140-400) Neutrophils (%) (Auto) 58 % (31-73) Lymphocytes (%) (Auto) 32 % (24-48) Monocytes (%) (Auto) 8 % (0-9) Eosinophils (%) (Auto) 2 % (0-3) Basophils (%) (Auto) 1 % (0-3) Neutrophils # (Auto) 3.0 x10^3/uL (1.8-7.7) Lymphocytes # (Auto) 1.6 x10^3/uL (1.0-4.8) Monocytes # (Auto) 0.4 x10^3/uL (0.0-1.1) Eosinophils # (Auto) 0.1 x10^3/uL (0.0-0.7) Basophils # (Auto) 0.0 x10^3/uL (0.0-0.2) Prothrombin Time 23.9 SEC (11.7-14.0) 26.7 SEC (11.7-14.0) Prothromb Time International Ratio 2.2 (0.8-1.1) 2.5 (0.8-1.1) Coronavirus (COVID-19)(PCR) Negative (NEGATIVE) Laboratory Tests Test 05/07/20 04:03 Prothrombin Time 26.7 SEC (11.7-14.0) Prothromb Time International Ratio 2.5 (0.8-1.1) Images Images 05/06/2020 CT ABD PELV W/ IV CONTRST ONLY History: Reason: evaluate venous system, Chronic Mustapha lower ext DVT, leg ulcers, IVC filter / Spl. Instructions: IV OMNI 300 100 MLS VENOUS DELAY PER DR. TOLBERT / History: Comparison/Correlation: 04/01/2018 CT abdomen and pelvis without and with contrast Axial images of the abdomen and pelvis were obtained following IV contrast. Imaging was performed in the late nephrographic and early excretory phase as in order to more optimally opacify the venous structures of the abdomen and pelvis. Sagittal and coronal reformatted images were provided. Very small pleural effusions are present. Minimal bibasilar atelectasis at the costophrenic angles noted. Liver, spleen, pancreas, adrenal glands, and kidneys are unremarkable although evaluation is limited as the images were acquired for optimal assessment of venous structures rather than the abdominal organs. Numerous venous collaterals involve the visualized subcutaneous lower thorax to the proximal thigh levels. Many are of large diameter. There is an inferior vena cava filter present at the L4 level within the inferior vena cava. There is lack of opacification of the filter on the images provided. The right common iliac vein and right external iliac vein are diminutive in size especially compared to the previous CT exam. The left common iliac vein is also diminutive in size compared to previous exam. There is mild decrease in the left external iliac vein diameter compared to the prior exam. Collaterals are seen involving the retroperitoneum about the abdominal aorta and inferior vena cava as well as about the iliac vessels. Collaterals are also seen at other sites within the abdomen including subjacent to the upper abdominal wall midline extending to the umbilicus. Umbilical hernia containing omental fat is normal in size.. Moderate L4-5 disc space narrowing is present. Urinary bladder is moderately distended. Impression: The inferior vena cava filter does not opacify adequately with contrast compatible with large thrombus involvement. This finding is new since the prior CT exam. Numerous large venous collaterals are seen involving the subcutaneous fat throughout the anatomic levels imaged for this exam. Collaterals are notable as well within the abdomen and pelvis. The common and external iliac veins bilaterally are smaller in size compared to prior exam especially on the right. Correlate for underlying chronic or previous history of thrombus. Opacification of these vessels is adequate on images provided. Small pleural effusions with minimal adjacent atelectasis. 05/05/2020 KUB HISTORY: Pulmonary embolism, inferior vena cava filter placement. COMPARISON: 04/04/2018. Enlargement of the left hilum corresponds with bulky calcified lymph nodes on prior CT. A vertically oriented relatively linear opacity in the right base may be scarring or a focal infiltrate and was not clearly seen previously. There is no pneumothorax or pleural effusion. The heart is not enlarged. An inferior vena cava filter is relatively inferiorly positioned, in the region of the confluence of the iliac veins. There are no distended small bowel loops. There is gas distally. IMPRESSION: 1. A linear opacity in the right base may represent scarring or a focal infiltrate. Follow-up could be performed if there is persistent concern. 2. Chronic left hilar enlargement corresponds with calcified lymph nodes consistent with old granulomatous disease. 3. The inferior vena cava filter is inferiorly placed in the region of the confluence of the iliac veins. 05/05/2020 CXR HISTORY: Pulmonary embolism, inferior vena cava filter placement. COMPARISON: 04/04/2018. Enlargement of the left hilum corresponds with bulky calcified lymph nodes on prior CT. A vertically oriented relatively linear opacity in the right base may be scarring or a focal infiltrate and was not clearly seen previously. There is no pneumothorax or pleural effusion. The heart is not enlarged. An inferior vena cava filter is relatively inferiorly positioned, in the region of the confluence of the iliac veins. There are no distended small bowel loops. There is gas distally. IMPRESSION: 1. A linear opacity in the right base may represent scarring or a focal infiltrate. Follow-up could be performed if there is persistent concern. 2. Chronic left hilar enlargement corresponds with calcified lymph nodes consistent with old granulomatous disease. 3. The inferior vena cava filter is inferiorly placed in the region of the confluence of the iliac veins. 05/05/2020 Bilateral lower extremity venous duplex Doppler ultrasound HISTORY: History of bilateral leg DVT, history of IVC filter, and chest, abdomen, pelvis and leg varicosities. No priors available for comparison. There is thin linear intraluminal web at the right common femoral vein typical of fibrin strand from chronic DVT. No echogenic nonocclusive or occlusive or acute DVT of the right common femoral vein, profunda femoral vein, superficial femoral vein or popliteal vein with patent blood flow and compressibility. Patent color Doppler blood flow the posterior tibial and peroneal veins in the calf. Right calf edema. There is linear intraluminal web at the left common femoral vein extending down the superficial femoral vein to the popliteal vein typical of fibrin strand from chronic DVT. No echogenic nonocclusive or occlusive or acute DVT of the left common femoral vein, profunda femoral vein, superficial femoral vein or popliteal vein with patent blood flow and compressibility. Patent color blood flow of the posterior tibial veins. The peroneal veins could not be visualized. IMPRESSION: Chronic DVT of both legs with intraluminal nonocclusive fibrin strands involving the femoral and popliteal veins as described above. No acute or occlusive DVT evident. Assessment/Plan Assessment/Plan ASSESSMENT: 34 year-old male with history of PE in 2016, s/p IVC filter on warfarin on and off. The patient was off warfarin from 12/2019-04/2020. Admitted 05/05/2020 with worsening right leg swelling and numerous necrotic ulcers. Chronic IVC thrombosis with collaterals based on CT and physical exam. Large amount of thrombus associated with IVC filter, likely contributing to worsening LE edema. Necrotic venous stasis ulcers in the right leg in the absence of acute LE DVT. The patient will benefit from lifelong anticoagulation due to presence of IVC filter with associated thrombosis and collaterals. Although warfarin could be continued, NOACs (such as Eliquis 5 mg bid) could also be considered as more affective and associated with lower risk of bleeding including lower risk of ACH, compared with warfarin. There is no significant advantage in LMWH compared with NOACs in terms of efficacy or risk of side effects. Nevertheless, LMWH may offer flexibility with holding it prior to procedures for only 12-24 hours, compared with 3-5 days for NOACs. Vascular surgery consultation could be considered, although it might be very challenging to attempt to alleviate large burden of IVC-related thrombosis. PLAN: 1. Lifelong anticoagulation as above. 2. Consider vascular surgery consult if deemed appropriate by surgical team and Dr. Gregory Loving. 3. Follow-up at [facility] over the next 3-4 weeks. Thank you for the opportunity to see your patient. Please call with any questions. Andres Hong MD [phone] KIMANI HONG MD May 07, 2020 13:54
[2020-05-07] MEDS: fentaNYL PF VIAL 100 MCG/2 ML VIAL IV PRN ×2 (14:05→14:11)
[2020-05-07 14:28] VITALS: BP 129/90
[2020-05-07] MEDS: HYDROcodone/APAP 5/325MG 1 TAB TABLET PO PRN ×2 (16:43→20:47)
[2020-05-07] MEDS: WARFARIN 4 MG TABLET. PO SCH (16:43)
[2020-05-07 19:00] VITALS: BP 115/51
--- NOTE | 2020-05-07 19:34 | NUR ---
assumed care at 1700. patient has been sleeping.
[2020-05-07] MEDS: OLANZapine 5 MG TABLET PO SCH (20:46)
[2020-05-07] MEDS: ceFAZolin SODIUM 2 GM in IV DEXTROSE 5% 50 ML IV SCH (21:34)
[2020-05-07 23:07] VITALS: BP 118/60
[2020-05-08] MEDS: ceFAZolin SODIUM 2 GM in IV DEXTROSE 5% 50 ML IV SCH ×2 (06:26→14:20)
[2020-05-08] MEDS: HYDROcodone/APAP 5/325MG 1 TAB TABLET PO PRN ×2 (06:27→14:20)
[2020-05-08 07:15] LABS: PROTHROMBIN TIME PATIENT 25.5 SEC (11.7-14.0)
[2020-05-08 07:58] VITALS: BP 108/64
[2020-05-08] MEDS: MULTIVITAMIN with MINERAL TABLET. PO SCH (07:59)
[2020-05-08] MEDS: silver sulfADIAZINE 1% CREAM 25GM TUBE. TP SCH (07:59)
[2020-05-08] MEDS: LACTOBACILLUS RHAMNOSUS GG 1 CAPSULE. PO SCH (07:59)
--- NOTE | 2020-05-08 09:24 | PDOC ---
PROGRESS NOTES Subjective Subjective feels better today Objective Objective Vital Signs Date Time Temp Pulse Resp B/P (MAP) Pulse Ox O2 Delivery O2 Flow Rate FiO2 05/08/20 08:00 Room Air 05/08/20 07:58 97.8 65 18 108/64 (79) 99 97.8 05/07/20 13:44 10.0 Intake and Output 05/08/20 07:00 Intake Total 1625 ml Balance 1625 ml Intake Oral 1025 ml IV Total 600 ml # Voids 3 Physical Exam Abdomen: Normal bowel sounds Heart: Regular rate Extremities: No clubbing General: Alert, Oriented X3, No acute distress HEENT: Atraumatic Lungs: Clear to auscultation MUSCULOSKELETAL: Osteoarthritic changes both hands Neck: Supple Neuro: Normal gait Psych/Mental Status: Mental status NL Skin: Other (Multiple necrotic chronic venous stasis ulcers in the right leg. ) Assessment Assessment FINAL IMPRESSION: 1. Multiple Ulcers with possible cellulitis, right lower leg. 2. Chronic recurrent deep venous thrombosis. 3. History of inferior vena cava filter. 4. The patient has prominent varicose veins, possible collaterals, in the chest and abdominal wall 5. History of schizophrenia stable on medications . PLAN: POD #1 wound debridement. plans for ou tpt removal of ivc filter at [facility] next week stop coumadin and bridge with lovenox until th eprocedure CT venogram ,clots around IVC filter venous doppler both legs inr 2.3 good on coumadin. Appreciate vascular consult. covid -19 neg other labs ok. hematology consult for hypercoaguble state At this time, admit to the hospital, IV antibiotics, Ancef after cultures. The patient may need compression wraps, venous Doppler to rule out DVT, check INR, and also we will have Vascular to see if we can do further investigation for the collaterals, and Wound Care consult. Comment Review of Relevant I have reviewed the following items jessica (where applicable) has been applied. Labs Laboratory Tests Test 05/08/20 05:45 Prothrombin Time 25.5 SEC (11.7-14.0) Prothromb Time International Ratio 2.3 (0.8-1.1) Microbiology 05/07/20 Gram Stain - Final, Resulted 05/07/20 Aerobic and Anaerobic Culture, Resulted Pending 05/06/20 Gram Stain - Final, Resulted 05/06/20 Aerobic and Anaerobic Culture, Resulted Pending Medications Current Medications Acetaminophen/ Hydrocodone Bitart (Lortab 5/325) 1 tab PRN Q4HRS PRN PO PAIN Last administered on 05/08/20at 06:27; Start 05/07/20 at 13:30 Cefazolin Sodium 2 gm/Dextrose 50 ml @ 100 mls/hr Q8HRS IV Last administered on 05/08/20at 06:26; Start 05/07/20 at 22:00 Cefazolin Sodium/ Dextrose 50 ml @ 100 mls/hr Q8HRS IV ; Start 05/07/20 at 22:00; Status Cancel Cellulose (Surgicel Fibrillar 1x2) 1 each STK-MED ONCE .ROUTE ; Start 05/07/20 at 12:41; Stop 05/07/20 at 14:22; Status DC Ephedrine Sulfate (Akovaz) 50 mg STK-MED ONCE .ROUTE ; Start 05/07/20 at 14:20; Stop 05/07/20 at 14:22; Status DC Fentanyl Citrate (Fentanyl 2ml Vial) 100 mcg STK-MED ONCE .ROUTE ; Start 05/07/20 at 12:49; Stop 05/07/20 at 14:22; Status DC Lidocaine HCl (Lidocaine 1% 20ml Vial) 20 ml STK-MED ONCE .ROUTE ; Start 05/07/20 at 12:41; Stop 05/07/20 at 14:22; Status DC Lidocaine HCl (Xylocaine-Mpf 1% 5ml Vial) 5 ml STK-MED ONCE .ROUTE ; Start 05/07/20 at 12:49; Stop 05/07/20 at 14:22; Status DC Midazolam HCl (Versed) 2 mg STK-MED ONCE .ROUTE ; Start 05/07/20 at 12:50; Stop 05/07/20 at 14:22; Status DC Propofol (Diprivan) 200 mg STK-MED ONCE IV ; Start 05/07/20 at 12:49; Stop 05/07/20 at 14:22; Status DC Vitals/I & O Vital Sign - Last 24 Hours 05/07/20 05/07/20 05/07/20 05/07/20 10:50 12:24 13:26 13:26 Temp 97.5 98.6 97.5 98.6 Pulse 82 57 72 Resp 16 15 20 B/P (MAP) 117/73 (88) 119/69 133/59 Pulse Ox 99 99 100 O2 Delivery Room Air Room Air Simple Mask Mask O2 Flow Rate 10 10 05/07/20 05/07/20 05/07/20 05/07/20 13:41 13:44 13:56 14:04 Pulse 71 55 Resp 20 20 20 20 B/P (MAP) 125/70 122/52 Pulse Ox 99 99 100 99 O2 Delivery Room Air Simple Mask Room Air Room Air O2 Flow Rate 10.0 05/07/20 05/07/20 05/07/20 05/07/20 14:05 14:11 14:11 14:28 Temp 97.4 97.4 Pulse 60 66 Resp 20 20 20 17 B/P (MAP) 125/60 129/90 (103) Pulse Ox 99 99 97 O2 Delivery Room Air Room Air Room Air Room Air 05/07/20 05/07/20 05/07/20 05/07/20 19:00 20:00 20:47 21:50 Temp 97.6 97.6 Pulse 68 Resp 20 16 16 B/P (MAP) 115/51 (72) Pulse Ox 96 O2 Delivery Room Air Room Air Room Air Room Air 05/07/20 05/08/20 05/08/20 05/08/20 23:07 06:27 07:27 07:58 Temp 97.7 97.8 97.7 97.8 Pulse 82 65 Resp 18 14 16 18 B/P (MAP) 118/60 (79) 108/64 (79) Pulse Ox 98 99 O2 Delivery Room Air Room Air Room Air Room Air 05/08/20 08:00 O2 Delivery Room Air Intake and Output 05/07/20 05/07/20 05/08/20 15:00 23:00 07:00 Intake Total 425 ml 1000 ml 200 ml Balance 425 ml 1000 ml 200 ml Justicifation of Admission Dx: Justifications for Admission: Justification of Admission Dx: Yes Cellulitis: Cellulitis KITA BURGER MD May 08, 2020 09:24
[2020-05-08] MEDS ORDERED: HYDR-3164 PO (09:32)
[2020-05-08] MEDS ORDERED: ENOX100D SQ (09:32)
[2020-05-08] MEDS ORDERED: CEPH-264 PO (09:32)
--- NOTE | 2020-05-08 09:35 | SNU/HH DC ---
DISCHARGE WITH HOME HEALTH DISCHARGE INFORMATION: Discharge Date: May 08, 2020 Condition on Discharge: Stable CODE STATUS: Code Status: Full HOME HEALTH: Face to Face: I certify this patient is under my care and that I, or a nurse practitioner or physician's trade sales assistant working with me, had a face to face encounter that meets the physician face to face encounter requirements with this patient on []. Medical Complications: Other (wound care+Lovenox inj ) Longterm For: Admin/Educate Injections, hydraulic technician For Eval/Treatment: Yes Pt Meets Homebound Status: Other: (wound care+injections lovenox) POST DISCHARGE ORDERS: Activity Instructions for Disc: Activity as tolerated Wound/Incision Care: Change dressing CERTIFICATION STATEMENT: Certification Statement: Certification Statement: Based on the above finding, I certify that this patient is confined to the home and needs intermittent mcc care, physical therapy and/or speech therapy, or continues to need occupational therapy.~ This patient is under my care, and I have initiated the establishment of the plan of care.~ This patient will be followed by myself or a community physician who will periodically review the plan of care. Home Meds Reported Medications Olanzapine (ZYPREXA) 15 Mg Tablet, 1 TAB PO QHS for SCHIZOPHRENIA , #30 TAB 05/05/20 Silver Sulfadiazine (SILVADENE) 20 Gm Cream..g., 1 MENDEL TP BID for RLE WOUNDS for 15 Days, #400 GM 0 Refills apply to affected area(s) 05/05/20 Warfarin Sodium (COUMADIN) 4 Mg Tablet, 8 MG PO DAILY for DVT, PE HX , TAB 05/05/20 KITA BURGER MD May 08, 2020 09:35
--- NOTE | 2020-05-08 10:15 | SNU/HH DC ---
DISCHARGE WITH HOME HEALTH DISCHARGE INFORMATION: Discharge Date: May 08, 2020 Condition on Discharge: Stable CODE STATUS: Code Status: Full HOME HEALTH: Face to Face: I certify this patient is under my care and that I, or a nurse practitioner or physician's metal forger's assistant working with me, had a face to face encounter that meets the physician face to face encounter requirements with this patient on []. Retirement For: Other: (wound care+dressings+lovenox shots) RN For Eval/Treatment: Yes Pt Meets Homebound Status: Other: (wound care +lovenox) POST DISCHARGE ORDERS: Activity Instructions for Disc: Activity as tolerated Wound/Incision Care: Change dressing FOLLOW-UP: Additional Instructions: stop coumadin bridge with lovenox daily Inr check starting 05/10/20 if inr more than 2.0 no lovenox if inr is between 1.5 and 2.0, given lovenx 100 mg sq once a day in the morning if inr is less than 1.5 given lovenox 100 mg sq twice a day (morning +evening) Donot give lovenox on the day of procedure and the night before the the of procedure Procedure is at removal of IVC filter and removal of thrombus,[facility] will inform the date and time CERTIFICATION STATEMENT: Certification Statement: Certification Statement: Based on the above finding, I certify that this patient is confined to the home and needs intermittent chcf care, physical therapy and/or speech therapy, or continues to need occupational therapy.~ This patient is under my care, and I have initiated the establishment of the plan of care.~ This patient will be followed by myself or a community physician who will periodically review the plan of care. Home Meds Active Scripts Hydrocodone/Apap 5-325 (NORCO 5-325 TABLET) 1 Each Tablet, 1 TAB PO TID for post op pain for 7 Days, #21 TAB Prov:KITA BURGER MD 05/08/20 Enoxaparin Sodium (LOVENOX) 100 Mg/1 Ml Disp.syrin, 100 MG SQ BID for ANTI- COAGULANT for 7 Days, DIS.SYR Prov:KITA BURGER MD 05/08/20 Cephalexin (KEFLEX) 500 Mg Capsule, 500 MG PO QID for leg ulcer for 7 Days, #28 CAP Prov:KITA BURGER MD 05/08/20 Reported Medications Olanzapine (ZYPREXA) 15 Mg Tablet, 1 TAB PO QHS for SCHIZOPHRENIA , #30 TAB 05/05/20 Silver Sulfadiazine (SILVADENE) 20 Gm Cream..g., 1 MENDEL TP BID for RLE WOUNDS for 15 Days, #400 GM 0 Refills apply to affected area(s) 05/05/20 Discontinued Reported Medications Warfarin Sodium (COUMADIN) 4 Mg Tablet, 8 MG PO DAILY for DVT, PE HX , TAB 05/05/20 KITA BURGER MD May 08, 2020 10:15
--- NOTE | 2020-05-08 10:24 | PDOC ---
SURGICAL PROGRESS NOTE Subjective Patient was seen and examined at the bedside this morning and is doing well. Vital Signs Vital Signs Date Time Temp Pulse Resp B/P (MAP) Pulse Ox O2 Delivery O2 Flow Rate FiO2 05/08/20 08:00 Room Air 05/08/20 07:58 97.8 65 18 108/64 (79) 99 97.8 05/07/20 13:44 10.0 I&O Intake and Output 05/08/20 07:00 Intake Total 1625 ml Balance 1625 ml Intake Oral 1025 ml IV Total 600 ml # Voids 3 General: Alert Lungs: Clear to auscultation, Normal air movement Heart: Regular rate, Normal S1, Normal S2 (Right ear) Abdomen: Normal bowel sounds, Soft, No tenderness Extremities: No cyanosis, Normal pulses, Other (Lower extremity skin wounds are unchanged with dressings intact.) Skin: Other (Dressings intact.) Neuro: Normal speech, Strength at 5/5 X4 ext, Sensation intact, Cranial nerves 3-12 NL Psych/Mental Status: Mental status NL, Mood NL Labs Laboratory Tests Test 05/07/20 04:03 05/08/20 05:45 Prothrombin Time 26.7 SEC (11.7-14.0) 25.5 SEC (11.7-14.0) Prothromb Time International Ratio 2.5 (0.8-1.1) 2.3 (0.8-1.1) Laboratory Tests Test 05/08/20 05:45 Prothrombin Time 25.5 SEC (11.7-14.0) Prothromb Time International Ratio 2.3 (0.8-1.1) Assessment/Plan 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 Patient had venous stasis ulcerations in the lower extremities secondary to the venous hypertension. Patient is going to have a procedure at the [facility] next week with attempted recanalization of his central venous system. All questions were answered to his satisfaction regarding this. Joon Banks DO, FACS Justicifation of Admission Dx: Justifications for Admission: Justification of Admission Dx: Yes Cellulitis: Cellulitis JOON BANKS DO May 08, 2020 10:24
--- NOTE | 2020-05-08 10:59 | NUR ---
LORRAINE following. Discussed with RN, and Dr. Loving. Pt needing daily INR checks starting Tuesday (05/10/2020) by [email or web address]. LORRAINE notified Dr. Loving about [place]icaid [place] being difficult to find accepting [employer] company. LORARINE met with pt, explained this, pt agreeable to [employer] and does not have a preference due to insurance difficulties. [facility] takes pt's insurance, LORRAINE notified it is just for INR from Tuesday - faxed referral, awaiting acceptance decision. Addendum: 05/08/20 at 1208 by BOBBY PETERS [facility] declined to pt due to staffing over the holiday weekend. [facility] does not take pt's insurance. Referral sent to [facility], awaiting confirmation from [employer] [employer]. as to whether they are in network for Medicaid [place]. LORRAINE will continue to follow. Addendum: 05/08/20 at 1456 by BOBBY PETERS Pt accepted with [facility], however then told SW he has to go to work on Tuesday. LORRAINE checked with [facility], pt's medicaid does not require homebound status. [facility] DON then preceded to question SW why pt even needs home health if he is going to work. LORRAINE explained daily INR checks, and labs not being open at the weekend when he needs to start. [facility] then declined to take pt, pt is going to follow up in an ER or at an urgent care. Discussed with RN.
[2020-05-08 11:13] VITALS: BP 118/64
--- NOTE | 2020-05-08 14:57 | NUR ---
Wound Care Wound Type/Assessment: f/u for consult for RLE VLU, hx of DVT,patient is status post debridement. The wound was cleaned, measured, pictured and redressed with Hydrogel with Hydrofera blue with an abd pad with Kerlix and tape. Treatment Recommendations/Plan: Continue with the recommended dressings, extra dressing left with patient Education provided: patient on leg elevation Recommended Referrals/Tests: vascular follow up Discharge Recommendations for dressings:Extra dressing left with patient, patient given an appointment for the Wound clinic for Tuesday05/13/2020@ 1230. Educated patient on the dressing and notified SHARONA Calvert about the POC.
[2020-05-08 15:49] VITALS: BP 113/70
--- NOTE | 2020-05-08 18:35 | NUR ---
Discharge Note: Patient was discharged home with self care. Patient removed own IV without complications. Patients family member at the bedside at the time of discharge education. Patient was given discharge summary/instructions, follow-ups, prescriptions and educational material. Patient did not have any further questions or concerns. Patient was taken down to the main entrance via wheelchair accompanied by Guilherme GARCÍA, with all personal belongings where family member was waiting for him to take him home.
--- NOTE | 2020-05-17 15:17 | PDOC ---
Provider Note Provider Note Discharge summary dictated. Justicifation of Admission Dx: Justifications for Admission: Justification of Admission Dx: Yes Cellulitis: Cellulitis KITA BURGER MD May 17, 2020 15:17
--- NOTE | 2020-05-17 15:37 | DS ---
DATE OF DISCHARGE: 05/08/2020 REASON FOR ADMISSION TO THE HOSPITAL: 1. Leg cellulitis. 2. Chronic venous insufficiency with chronic DVT. CONSULTATION: 1. Dr. [facility]. 2. Hematology for coagulation. 3. Infectious Disease, Dr. Mcallister. HOSPITAL COURSE: The patient is a 34-year-old male who has history of DVT, recurrent. The first attack was 5 years ago and he had IVC filter. He is on and off on Coumadin and he has been developing swelling of lower extremities lately skin breakdown with ulcerations. He also has developed collaterals in the abdominal wall, is concerned about that. He has been taking Coumadin seriously every day for the last 3 months and the patient was admitted to the hospital for skin breakdown, cellulitis and further workup. Had a venous Doppler negative for acute DVT shows chronic DVT and the patient was seen by Dr. Urban vascular because of collaterals and the patient had a CT angiogram of the abdomen and pelvis, which shows large thrombus of the IVC filter and numerous large collaterals. Because of history of IVC filter thrombosis, Oncology/Hematology was consulted and in their opinion lifelong anticoagulation is recommended and the plan is to have the IVC filter removed at [facility]. He is on Coumadin. Plan is to transition to subcutaneous Lovenox when his INR is less than 2 and he will be scheduled to have an IVC filter removed at in the next week.Pt had debridement of leg ulcer done in the hospital. FINAL DIAGNOSES: 1. Inferior vena cava filter thrombosis. 2. Chronic deep venous thromboses. 3. Chronic venous stasis ulcer. 4. Obesity, morbid. 5. History of schizophrenia. 6. History of deep venous thrombosis, had IVC filter 5 years ago. The patient's COVID test was negative here at the hospital and INR was 2.3. KITA BURGER MD DR: NALDO/luz JOB#: [id number] / [id number] TIAN
== END 2020-05-08 18:38 | disposition home or self-care (01) | DRG 571 ==
LOC: 4 NORTH 17:13
PROVIDERS: ADMIT Internal Medicine; ATTEND Internal Medicine
PROC: 0JBN0ZZ Excision of Right Lower Leg Subcutaneous Tissue and Fascia, Open Approach (ICD-10-PCS; principal; 2020-05-07 13:00)
DX: L03.115 Cellulitis of right lower limb (principal); I82.503 Chronic embolism and thrombosis of unspecified deep veins of lower extremity, bilateral; I96 Gangrene, not elsewhere classified; L97.919 Non-pressure chronic ulcer of unspecified part of right lower leg with unspecified severity; F20.9 Schizophrenia, unspecified; I10 Essential (primary) hypertension; I87.2 Venous insufficiency (chronic) (peripheral); K21.9 Gastro-esophageal reflux disease without esophagitis; Z20.828 Contact with and (suspected) exposure to other viral communicable diseases; Z79.01 Long term (current) use of anticoagulants; Z86.711 Personal history of pulmonary embolism; Z95.828 Presence of other vascular implants and grafts
CPT/HCPCS: 36415; 71045; 74018; 74177; 80053; 85025; 85610; 87071; 87075; 93005; 93970; A7015; J0690; J2250; J2270; J2704; J3010; J3490; J7040; J7060; J7120; Q9967; A4461; G0378; U0003-CS